=== PATIENT | female | born 1945 | race Caucasian/White ===

== ENCOUNTER 2020-02-21 09:12 | Outpatient (CLI) | payer MEDICARE, OTHER, SELFPAY ==
--- NOTE | 2020-02-21 09:30 | US_ITS ---
WS: [id number] ULTRASOUND RENAL TECHNIQUE: Ultrasound examination of both kidneys. CLINICAL INFORMATION: I10 - Essential (primary) hypertension COMPARISON: None. FINDINGS: RIGHT: Right kidney is normal in size and appearance. Echogenicity: Normal. Cortical thickness: 1.2 cm; Normal. Hydronephrosis: None. Perinephric fluid: None. Right kidney measures: 10.9 cm x 4.8 cm x 4.0 cm. LEFT: Left kidney is normal in size and appearance. Echogenicity: Normal. Cortical thickness: 1.2 cm; Normal. Hydronephrosis: None. Perinephric fluid: None. Left kidney measures: 10.3 cm x 4.2 cm x 4.6 cm. Normal visualized aorta. Normal bladder. US/US renal BI* [id number] IMPRESSION: Technically difficult examination due to body habitus. 1. Normal renal ultrasound. No hydronephrosis. 2. Normal bladder.
== END 2020-02-21 09:13 | disposition home or self-care (01) ==
PROVIDERS: PCP Nurse Practitioner Family; Visit Provider Nurse Practitioner Family
DX: I10 Essential (primary) hypertension (principal)
CPT/HCPCS: 76770

== ENCOUNTER 2020-02-28 06:38 | Outpatient (CLI) | payer MEDICARE, OTHER, SELFPAY ==
--- NOTE | 2020-02-28 07:15 | USCV_ITS ---
Anila Pearson Age: 74 Gender: F : 1945 Exam Date: 02/28/2020 07:02 Ordering Phys: Rocio GustafsonP Technologist: Lily Ahumada Exam Location: [facility] [place] Indication: htn Aortic Velocity @ SMA (cm/s) 81.6 RIGHT KIDNEY LEFT KIDNEY Velocity (cm/s) Velocity (cm/s) Sys/Diaz Sys/Diaz Resistive Index Resistive Index 117.9 / 29.2 0.75 Proximal Renal Artery 42.0 / 10.6 0.75 145.9 / 42.6 0.71 Mid Renal Artery 59.4 / 11.1 0.81 65.0 / 22.6 0.65 Distal Renal Artery 44.3 / 19.8 0.55 54.4 / 17.4 0.68 Hilar 39.0 / 11.4 0.71 66.5 / 20.2 0.70 Upper Pole 36.4 / 13.5 0.63 20.8 / 8.0 0.61 Mid Pole 18.5 / 8.7 0.53 25.1 / 13.6 0.46 Lower Pole 33.0 / 12.2 0.63 1.80 Renal Aortic Ratio 0.73 Accleration Index (cm/sec2) 989.00 Hilar 785.00 1150.0 Upper Pole 608.00 0 284.00 Mid Pole 282.00 302.00 Lower Pole 652.00 120.2 Kidney Length (mm) 107.1 FINDINGS There is no evidence of hemodynamically significant right renal artery stenosis. There is no evidence of hemodynamically significant left renal artery stenosis. CONCLUSIONS No sonographic evidence of hemodynamically significant renal artery stenosis bilaterally. Dr. Millicent Navarro DO (Electronically Signed) Final Date: 28 February 2020 09:36 S
== END 2020-02-28 06:39 | disposition home or self-care (01) ==
PROVIDERS: PCP Nurse Practitioner Family; Visit Provider Nurse Practitioner Family
DX: I10 Essential (primary) hypertension (principal)
CPT/HCPCS: 93975

== ENCOUNTER → 2020-03-05 00:01 | Outpatient (BNVA) | payer MEDICARE, OTHER, SELFPAY | PROVIDERS: PCP Nurse Practitioner Family; Visit Provider Nurse Practitioner Family | DX: R53.83 Other fatigue (principal); I10 Essential (primary) hypertension | CPT/HCPCS: 80053; 84443; 85007; 85027 ==

== ENCOUNTER 2020-04-10 07:46 | Outpatient (CLI) | payer MEDICARE, OTHER, SELFPAY ==
[2020-04-10 08:19] VITALS: BMI 32.8
--- NOTE | 2020-04-10 08:19 | NMCV_ITS ---
NM cecily perf SPECT r/s* [id number] Anila Pearson Age: 74 Gender: F : 1945 Exam Date: 04/10/2020 08:19 Ordering Phys: Jassi Hayes M.D ([email or web address]) Technologist: KASEY Jorge Exam Location: [facility] Indications: CHEST PAIN STRESS TEST Please see separate stress test report in [facility] for full findings IMAGE PROTOCOL Rest/Stress 1 Dobutamine Day Radiopharmaceutical Dose (mCi) Administration Site Administered by Rest: Tc-99m 10.7 IV KASEY Jorge Sestamibi Stress:Tc-99m 32.5 IV - right KASEY Jorge Sestamibi antecubital Rest: 10-Apr-2020 60 Discovery 630 Stress: 10-Apr-2020 30 Discovery 630 0.4mg Lexiscan. Images obtained in supine and prone position. SPECT RESULTS Technical Quality: Good Raw Data Analysis: Subdiaphragmatic activity Image Corrections: No attenuation or motion correction applied Summed Stress Score: 1 Summed Rest Score: 6 Summed Difference Score: 1 PERFUSION FINDINGS There is reduced uptake of radiotracer in the apical wall that improves with stress. Likely secondary to attenuation artifact. No evidence of ischemia seen FUNCTIONAL RESULTS (calculated via Gated SPECT) Stress Image LV EF (%): 80 Stress EDV (mL):82 TID: 1.07 Stress ESV (mL):16 FUNCTIONAL FINDINGS: LV systolic function is normal IMPRESSIONS 1. Normal myocardial perfusion imaging with no evidence of ischemia. 2. There is a small defect in the apical wall that improves with stress. Likely attenuation artifact 3. LV systolic function is normal Jassi Hayes MD (Electronically Signed) Final Date: 12 April 2020 15:14 S
--- NOTE | 2020-04-10 08:19 | ECG_ITS ---
[facility] Test Date: 2020-04-10 Pat Name: Anila Pearson Department: Room: Gender: Female [employer]orer [employer]: : 1945 Requested By: Jassi Hayes Order Number: [id number] Ran MD: Jassi Hayes M.D. Interpretive Statements NAME OF STUDY: LEXISCAN SESTAMIBI STRESS TEST INDICATION: [Chest Pain, ] Procedure: At the baseline, the blood pressure was 153/79 mmHg, with a heart rate of 65 bpm. The electrocardiogram showed normal sinus rhythm, normal with normal ST and T waves. The Lexiscan was infused over a duration of 20 seconds. A total of 0.4 mg of Lexiscan was infused. The stress phase was continued for a total of 5 minutes. Heart rate at the end of stress phase was 86 bpm with a blood pressure 137/68 mmHg. The EKG at the peak infusion revealed sinus rhythm with no significant ST-T wave changes. Sestamibi was injected 20 seconds after Lexiscan infusion. Blood pressure at the end of the recovery phase was 133/67mmHg with a heart rate of 79 bpm. Conclusion: 1. Normal EKG response to Lexiscan infusion. 2. No Lexiscan induced chest pain or cardiac arrhythmia. 3. Normal blood pressure and heart rate response. 4. Sestamibi/sestamibi perfusion scan pending; see separate report. Electronically Signed On 04-19-2020 17:58:38 CDT by Jassi Hayes M.D. [id number]
--- NOTE | 2020-04-10 09:30 | USCV_ITS ---
Anila Pearson Age: 74 Gender: F : 1945 Exam Date: 04/10/2020 08:48 Ordering Phys: Jassi Hayes M.D ([email or web address]) Technologist: Lily Ahumada [place] [facility] [place]: SOB BP: 139 / 63 HR: 56 Rhythm: Sinus Technical Quality: Adequate MEASUREMENTS (Male / Female) Normal Values 2D ECHO LV Diastolic Diameter PLAX 3.6 cm 4.2 - 5.9 / 3.9 - 5.3 cm LV Systolic Diameter PLAX 2.7 cm LV Chamber Size 2.9 cm IVS Diastolic Thickness 1.1 cm 0.6 - 1.0 / 0.6 - 0.9 cm IVS Systolic Thickness 1.4 cm LVPW Diastolic Thickness 1.9 cm 0.6 - 1.0 / 0.6 - 0.9 cm LVPW Systolic Thickness 1.9 cm RV Chamber Size 2.1 cm LVOT Diameter 2.1 cm LV Ejection Fraction 2D Teich 52.6 % LV Ejection Fraction MOD 2C 61.7 % LV Ejection Fraction 2C AL 60.1 % LA Diameter 3.1 cm LA Width 3.3 cm LA Height 4.1 cm RA Width 2.7 cm RA Height 3.5 cm Aorta at Sinotubular Diameter 2.9 cm M-MODE LV Diastolic Diameter MM 4.5 cm 4.2 - 5.9 / 3.9 - 5.3 cm LV Systolic Diameter MM 3.1 cm LV Ejection Fraction MM Teich 59.5 % IVS Diastolic Thickness MM 1.0 cm 0.6 - 1.0 / 0.6 - 0.9 cm IVS Systolic Thickness MM 1.0 cm LVPW Diastolic Thickness MM 0.9 cm 0.6 - 1.0 / 0.6 - 0.9 cm LVPW Systolic Thickness MM 1.1 cm Aortic Annulus Diameter 3.4 cm LA Ao Ratio MM 1.0 MV E Point Septal Separation 0.7 cm DOPPLER AV Peak Velocity 124.0 cm/s LVOT Peak Velocity 104.0 cm/s AV Area Cont Eq vti 2.9 cm squared AV Area Cont Eq pk 3.0 cm squared MV Area PHT 3.7 cm squared Mitral E to A Ratio 0.8 MV E' Velocity 47.5 cm/s Mitral E to MV E' Ratio 8.9 Mitral E to LV E' Lateral Ratio 7.6 Mitral E to LV E' Septal Ratio 10.9 TR Peak Velocity 204.5 cm/s TR Peak Gradient 16.7 mmHg TV Peak E Velocity 67.0 cm/s Right Atrial Pressure 3.0 mmHg Pulmonary Artery Systolic Pressu 19.7 mmHg PV Peak Velocity 82.0 cm/s RV Acceleration Time 0.2 s RV Ejection Time 0.4 s RV AcT/ET 0.4 FINDINGS Left Ventricle Normal left ventricular size. LV systolic function is normal with EF of 55-60%. No regional wall motion abnormalities. Grade 1 diastolic dysfunction Right Ventricle The right ventricle is normal in size and function. Right Atrium The right atrium is normal in size. Left Atrium The left atrium is normal in size. Mitral Valve Structurally normal mitral valve without significant stenosis or prolapse. There is trace mitral regurgitation. Aortic Valve Structurally normal aortic valve without significant sclerosis or stenosis. There is mild aortic regurgitation. Tricuspid Valve Structurally normal tricuspid valve without significant stenosis or regurgitation. Insufficient TR jet to calculate RVSP Pulmonic Valve Grossly normal Pericardium Normal pericardium without effusion. Aorta Normal ascending aorta dimension. CONCLUSIONS LV systolic function is normal with EF of 55-60% Grade 1 diastolic dysfunction is noted Mild aortic regurgitation. Trace mitral regurgitation is noted No comparison studies are available Jassi Hayes MD (Electronically Signed) Final Date: 13 April 2020 14:46 S
[2020-04-10] MEDS: regadenoson 0.4 Mg/5 ml Syringe IVP (11:31)
[2020-04-10 11:48] VITALS: BP 133/67; PULSE 78
== END 2020-04-10 07:47 | disposition home or self-care (01) ==
LOC: CDL 07:48
PROVIDERS: PCP Nurse Practitioner Family; Visit Provider Internal Medicine
DX: R07.9 Chest pain, unspecified (principal); R06.02 Shortness of breath; I08.0 Rheumatic disorders of both mitral and aortic valves
CPT/HCPCS: 78452; 93017; 93306; A9500; J2785

== ENCOUNTER 2021-05-13 10:40 | Outpatient (CLI) | payer MEDICARE, OTHER, SELFPAY ==
--- NOTE | 2021-05-13 10:58 | XR_ITS ---
WS: [email or web address] XR shoulder RT min 2V* [id number] REASON FOR EXAM: M25.511 - Pain in right shoulder FINDINGS: No fracture. Mild to moderate narrowing of the acromioclavicular joint with mild subchondral sclerosis and small m arginal osteophytes. Mild narrowing of the glenohumeral joint with mild subchondral sclerosis of the glenoid and small mar ginal osteophyte of the humeral head. Subchondral sclerosis and cystic change with some irregularity at the humeral insertion of the rotato r cuff tendon. XR/XR shoulder RT min 2V* [id number] IMPRESSION: No acute abnormality. 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 Moderate osteoarthritis in the glenohumeral joint. Moderate rotator cuff arthro flynn.
--- NOTE | 2021-05-13 10:58 | XR_ITS ---
WS: [email or web address] XR cervical spine 3V* [id number] REASON FOR EXAM: S13.4XXA - Sprain of ligaments of cervical spine, initial... FINDINGS: No fracture identified. Normal odontoid. Straightening of the normal lordosis of the cervical spine on the lateral. Significant narrowing of the C5-C6 and C6-C7 disc spaces. 1 to 2 mm of anterolisthesis of C4 on C5. Calcified plaque in the right carotid bifurcation. XR/XR cervical spine 3V* [id number] IMPRESSION: No acute abnormality. Degenerative spondylosis as above. Calcified plaque in the right carotid artery bifurcation.
--- NOTE | 2021-05-13 10:58 | XR_ITS ---
WS: [email or web address] XR lumbar spine 2-3V* [id number] REASON FOR EXAM: M54.50 - Low back pain, unspecified FINDINGS: Rotatory scoliosis convex right on the AP view. Straightening of the upper lumbar spine lordosis on the lateral. Mild biconcave compression deformities of T12 and L1. Chronicity unknown. Significant narrowing of the L1-L2 and L2-L3 disc spaces. Remaining disc spaces are relatively well-p reserved. No spondylolysis. 3 mm of anterolisthesis of L3 in relation to L2. 3 mm of anterolisthesis of L5 in relation to L4. Degenerative arthropathy in the sacroiliac joints bilaterally. XR/XR lumbar spine 2-3V* [id number] IMPRESSION: Multilevel degenerative spondylosis as above. Mild compression deformities of T12 and L1, unknown chronicity.
== END 2021-05-13 10:41 | disposition home or self-care (01) ==
LOC: RAD 10:43
PROVIDERS: PCP Nurse Practitioner Family; Visit Provider Nurse Practitioner Family
DX: S13.4XXA Sprain of ligaments of cervical spine, initial encounter (principal); M19.011 Primary osteoarthritis, right shoulder; M47.816 Spondylosis without myelopathy or radiculopathy, lumbar region; I65.21 Occlusion and stenosis of right carotid artery; X58.XXXA Exposure to other specified factors, initial encounter
CPT/HCPCS: 72040; 72100; 73030

== ENCOUNTER 2021-06-16 08:53 | Outpatient (CLI) | payer MEDICARE, OTHER, SELFPAY ==
--- NOTE | 2021-06-16 09:15 | USCV_ITS ---
Anila Pearson Age: 75 Gender: F : 1945 Exam Date: 06/16/2021 09:08 Ordering Phys: Rocio Gustafson Technologist: [place] [facility] [place]: DIZZY Risk Factors: Previous Vascular Surgery: Right Brachial BP: / Left Brachial BP: / Right Left Velocity (cm/s) Spectral Plaque Velocity (cm/s) Spectral Plaque Syst/Diast Broadening Syst/Diast Broadening 52.80/ 10.10 Prox CCA 55.20 / 9.30 39.50/ 10.70 Mid CCA 55.90 / 14.00 56.10/ 11.70 Distal CCA 60.60 / 14.00 74.60/ 15.50 Prox ICA 57.50 / 14.00 71.50/ 18.60 Mid ICA 65.30 / 14.80 72.20/ 15.50 Distal ICA 65.30 / 18.60 58.70 ECA 94.80 1.33 ICA/CCA 1.08 Antegrade Vertebral Antegrade 38.80/ 13.20 cm/s 67.60/ 14.00 cm/s Tri Subclavian Tri 92.40 87.80 FINDINGS Comparison: none available. No significant elevation of systolic or diastolic velocities. Waveforms are normal. Mild bilateral carotid atherosclerosis. CONCLUSIONS No carotid stenosis. Mild carotid atherosclerosis. Dr. Millicent Navarro DO (Electronically Signed) Final Date: 16 Jun 2021 11:14 S
== END 2021-06-16 08:54 | disposition home or self-care (01) ==
PROVIDERS: PCP Nurse Practitioner Family; Visit Provider Nurse Practitioner Family
DX: R42 Dizziness and giddiness (principal)
CPT/HCPCS: 93880

== ENCOUNTER 2021-07-08 14:05 | Outpatient (CLI) | payer MEDICARE, OTHER, SELFPAY ==
--- NOTE | 2021-07-08 14:30 | MR_ITS ---
WS: [email or web address] MRI LUMBAR SPINE NONCONTRAST TECHNIQUE: Sagittal T1, T2 and STIR imaging. Axial T1 and T2 imaging. CLINICAL INFORMATION: S32.000A - Wedge compression fracture of unspecified lumb... COMPARISON: None. FINDINGS: Mild lumbar curve. No acute compression. No high-grade central canal stenosis. Degenerative endplate- type changes at T12-L1 with disc desiccation and endplate edema. Lumbar curve. L1-L2: Normal. L2-L3: Mild disc bulging with slight effacement of ventral thecal sac. Mild facet arthropathy. Narrow ing of the LEFT subarticular recess. Spinal canal and foramen are patent. L3-L4: Mild annular bulging with slight narrowing of the subarticular recess. Mild facet arthropathy with ligamentum flavum hypertrophy. Mild RIGHT greater than LEFT foraminal narrowing with contact of the exiting RIGHT greater than LEFT L3 nerve roots. L4-L5: Disc desiccation with mild disc bulging. RIGHT eccentric disc bulging with slight contact of t he exiting RIGHT L4 nerve root. Mild RIGHT foraminal narrowing. LEFT foramen is patent. Mild facet ar thropathy. L5-S1: Minimal anterolisthesis L5 on S1. Minimal disc bulging. Moderate facet arthropathy with ligame ntum flavum hypertrophy. Spinal canal and foramen are patent. MR/MR lumbar spine wo con* [id number] IMPRESSION: 1. Mild lumbar curve. No acute compression. No high-grade central canal stenos is. 2. Degenerative endplate-type changes at T12-L1. 3. Narrowing of the LEFT subarticular recess L2-L3. 4. Mild RIGHT greater than LEFT L3-L4 foraminal narrowing with small bilateral foraminal protrusions. 5. Mild RIGHT L4-L5 foraminal narrowing with encroachment exiting RIGHT L4 ner ve root. 6. Moderate to advanced facet arthropathy L5-S1.
== END 2021-07-08 14:06 | disposition home or self-care (01) ==
LOC: RAD 14:06
PROVIDERS: PCP Nurse Practitioner Family; Visit Provider Nurse Practitioner Family
DX: S32.000A Wedge compression fracture of unspecified lumbar vertebra, initial encounter for closed fracture (principal); M47.817 Spondylosis without myelopathy or radiculopathy, lumbosacral region
CPT/HCPCS: 72148

== ENCOUNTER → 2022-04-14 12:53 | Outpatient (BNVA) | payer MEDICARE, OTHER, SELFPAY | PROVIDERS: PCP Nurse Practitioner Family; Visit Provider Nurse Practitioner Family | DX: I10 Essential (primary) hypertension (principal) | CPT/HCPCS: 99213 ==

== ENCOUNTER 2022-07-06 09:44 | Outpatient (CLI) | payer MEDICARE, OTHER, SELFPAY ==
--- NOTE | 2022-07-06 09:49 | MM_ITS ---
WS: [email or web address] BILATERAL SCREENING DIGITAL TOMOSYNTHESIS MAMMOGRAM WITH CAD HISTORY: Z12.39 - Encounter for other screening for malignant neoplasm... COMPARISON: 07/28/2021, 01/15/2020 Bilateral CC and MLO views with tomosynthesis and synthetic mammography submitted. Computer aided det ection analyzed. Breast composition: There are scattered areas of fibroglandular density. No suspicious masses, microc alcifications or architectural distortion. Long-term stability of an asymmetry in the lateral RIGHT b reast at a middle depth. No suspicious masses or calcifications or interval change. MM/[place] [id number] IMPRESSION: BI-RADS: 2-Benign FOLLOW UP: 1 Year Follow-up
== END 2022-07-06 09:45 | disposition home or self-care (01) ==
PROVIDERS: PCP Nurse Practitioner Family; Visit Provider Nurse Practitioner Family
DX: Z12.31 Encounter for screening mammogram for malignant neoplasm of breast (principal)
CPT/HCPCS: 77063; 77067

== ENCOUNTER → 2022-11-24 10:25 | Outpatient (BNVA) | payer MEDICARE, OTHER, SELFPAY | PROVIDERS: PCP Nurse Practitioner Family; Visit Provider Dermatology | DX: L57.0 Actinic keratosis (principal); L81.4 Other melanin hyperpigmentation; L82.1 Other seborrheic keratosis; L57.8 Other skin changes due to chronic exposure to nonionizing radiation; L30.9 Dermatitis, unspecified | CPT/HCPCS: 11104; 11105; 17000; 99203 ==

== ENCOUNTER → 2022-12-21 14:40 | Outpatient (BNVA) | payer MEDICARE, OTHER, SELFPAY | PROVIDERS: PCP Nurse Practitioner Family; Visit Provider Nurse Practitioner Family | DX: I10 Essential (primary) hypertension (principal); R53.83 Other fatigue; Z00.00 Encounter for general adult medical examination without abnormal findings | CPT/HCPCS: 80053; 80061; 85025 ==

== ENCOUNTER → 2023-01-03 11:59 | Outpatient (BNVA) | payer MEDICARE, OTHER, SELFPAY | PROVIDERS: PCP Nurse Practitioner Family; Visit Provider Nurse Practitioner Family | DX: D64.9 Anemia, unspecified (principal); I10 Essential (primary) hypertension | CPT/HCPCS: 80061; 82607; 83550 ==

== ENCOUNTER → 2023-01-12 14:32 | Outpatient (BNVA) | payer MEDICARE, OTHER, SELFPAY | PROVIDERS: PCP Nurse Practitioner Family; Visit Provider Internal Medicine | DX: I10 Essential (primary) hypertension (principal); F41.9 Anxiety disorder, unspecified | CPT/HCPCS: 99213 ==

== ENCOUNTER → 2023-03-21 13:46 | Outpatient (BNVA) | payer MEDICARE, OTHER, SELFPAY | PROVIDERS: PCP Nurse Practitioner Family; Visit Provider Dermatology | DX: L30.0 Nummular dermatitis (principal); L82.0 Inflamed seborrheic keratosis; L73.8 Other specified follicular disorders | CPT/HCPCS: 17110; 99213 ==

== ENCOUNTER → 2023-04-03 15:52 | Outpatient (BNVA) | payer MEDICARE, OTHER, SELFPAY | PROVIDERS: PCP Nurse Practitioner Family; Visit Provider Nurse Practitioner Family | DX: J32.9 Chronic sinusitis, unspecified (principal) | CPT/HCPCS: 87400; 87426 ==

== ENCOUNTER 2023-04-12 11:38 | Outpatient (CLI) | payer MEDICARE, OTHER, SELFPAY ==
--- NOTE | 2023-04-12 11:41 | XRR_ITS ---
PROCEDURE INFORMATION: Exam: XR Chest Exam date and time: 04/12/2023 11:53 AM Age: 77 years old Clinical indication: Cough; Additional info: R05.9 - cough, unspecified TECHNIQUE: Imaging protocol: Radiologic exam of the chest. Views: 2 views. Total images: 2 COMPARISON: CR XR cervical spine 3V* [id number] 05/13/2021 11:19 AM FINDINGS: Lungs: Trace atelectasis or scar noted in the right mid lung. Benign granulomatous disease of the lung is noted. Pleural spaces: Unremarkable. No pleural effusion. No pneumothorax. Heart/Mediastinum: Unremarkable. No cardiomegaly. Bones/joints: Unremarkable. XR/XR chest 2V* [id number] IMPRESSION: Trace atelectasis or scar noted in the right mid lung.
== END 2023-04-12 11:39 | disposition home or self-care (01) ==
LOC: RAD 11:39
PROVIDERS: PCP Nurse Practitioner Family; Visit Provider Nurse Practitioner Family
DX: R05.9 Cough, unspecified (principal)
CPT/HCPCS: 71046

== ENCOUNTER 2023-07-10 10:24 | Outpatient (CLI) | payer MEDICARE, OTHER, SELFPAY ==
--- NOTE | 2023-07-10 10:31 | MM_ITS ---
WS: [email or web address] SCREENING DIGITAL TOMOSYNTHESIS MAMMOGRAM WITH CAD HISTORY: SCREENING COMPARISON: 07/06/2022, 07/28/2021 Bilateral CC and MLO with tomosynthesis views submitted. Synthetic mammography reviewed. Computer aid ed detection analyzed. Breast composition: There are scattered areas of fibroglandular density. No suspicious masses, microc alcifications or architectural distortion. Benign lymph node upper outer quadrant RIGHT breast. MM/[place] [id number] IMPRESSION: BI-RADS: 2-Benign FOLLOW UP: 1 Year Follow-up
== END 2023-07-10 10:25 | disposition home or self-care (01) ==
LOC: RAD 10:24
PROVIDERS: PCP Nurse Practitioner Family; Visit Provider Nurse Practitioner Family
DX: Z12.31 Encounter for screening mammogram for malignant neoplasm of breast (principal); R92.323 Mammographic fibroglandular density, bilateral breasts
CPT/HCPCS: 77063; 77067

== ENCOUNTER → 2024-01-15 14:44 | Outpatient (BNVA) | payer MEDICARE, OTHER, SELFPAY | PROVIDERS: PCP Nurse Practitioner Family; Visit Provider Internal Medicine | DX: I10 Essential (primary) hypertension (principal) | CPT/HCPCS: 99214 ==

== ENCOUNTER → 2024-04-25 15:46 | Outpatient (BNVA) | payer MEDICARE, OTHER, SELFPAY | PROVIDERS: PCP Nurse Practitioner Family; Visit Provider Nurse Practitioner Family | DX: I10 Essential (primary) hypertension (principal); D64.9 Anemia, unspecified | CPT/HCPCS: 80053; 85025 ==

== ENCOUNTER → 2024-06-20 09:02 | Outpatient (BNVA) | payer MEDICARE, OTHER, SELFPAY | PROVIDERS: PCP Nurse Practitioner Family; Visit Provider Nurse Practitioner Family | DX: E87.1 Hypo-osmolality and hyponatremia (principal) | CPT/HCPCS: 80053 ==

== ENCOUNTER 2024-07-05 13:06 | Outpatient (CLI) | payer MEDICARE, OTHER, SELFPAY ==
--- NOTE | 2024-07-05 13:12 | XR_ITS ---
WS: [email or web address] Right shoulder, 2 views, 07/05/2024 Clinical Data: M25.511 - Pain in right shoulder Comparison: Right shoulder, 05/13/2021 Findings: No fractures or dislocations are seen. The AC joint shows mild osteoarthritis. There is minimal osteoarthritis of the right glenohumeral joint with irregularity of the greater tuberosity. The adjacent right clavicle, right scapula and ribs are normal. The soft tissues are unremarkable. XR/XR shoulder RT min 2V* [id number] Impression: Minimal osteoarthritis of the right AC joint and glenohumeral joint.
--- NOTE | 2024-07-05 13:12 | XR_ITS ---
WS: [email or web address] Cervical spine, 3 views, 07/05/2024 Clinical Data: M54.2 - Cervicalgia Comparison: Cervical spine, 05/13/2021 Findings: No compression fractures are seen. There is degenerative disc narrowing at C5-C6 and C6-C7. There is no prevertebral soft tissue swelling. The odontoid is unremarkable. The soft tissues of the neck show right carotid bifurcation calcification. The lung apices are normal. XR/XR cervical spine 3V* [id number] Impression: Degenerative disc narrowing at C5-C6 and C6-C7.
== END 2024-07-05 13:07 | disposition home or self-care (01) ==
LOC: RAD 13:07
PROVIDERS: PCP Nurse Practitioner Family; Visit Provider Nurse Practitioner Family
DX: M50.322 Other cervical disc degeneration at C5-C6 level (principal); M50.323 Other cervical disc degeneration at C6-C7 level; I65.21 Occlusion and stenosis of right carotid artery; M19.011 Primary osteoarthritis, right shoulder
CPT/HCPCS: 72040; 73030

== ENCOUNTER 2024-07-12 13:37 | Outpatient (CLI) | payer MEDICARE, OTHER, SELFPAY ==
--- NOTE | 2024-07-12 13:47 | MM_ITS ---
WS: [email or web address] BILATERAL 3D TOMOSYNTHESIS DIGITAL SCREENING MAMMOGRAM WITH CAD CLINICAL INFORMATION: SCREENING HISTORY: Screening mammogram. No current complaints. COMPARISON: 2023 TECHNIQUE: Bilateral CC and MLO views. FINDINGS: Fatty-replaced breasts bilaterally. No suspicious focal mass, asymmetry, calcifications, or architectural distortion. No evidence of malignancy. Vascular calcifications. A few incidental intramammary lymph nodes similar to previous MM/MM scr tomosynthesis [id number] IMPRESSION: DENSITY: There are scattered areas of fibroglandular density. BI-RADS: 2 - Benign. FOLLOW UP: 1 Year Follow-up Recommend return to annual screening mammography.
== END 2024-07-12 13:38 | disposition home or self-care (01) ==
LOC: RAD 13:39
PROVIDERS: PCP Nurse Practitioner Family; Visit Provider Nurse Practitioner Family
DX: Z12.31 Encounter for screening mammogram for malignant neoplasm of breast (principal); R92.313 Mammographic fatty tissue density, bilateral breasts; R92.1 Mammographic calcification found on diagnostic imaging of breast; R59.0 Localized enlarged lymph nodes
CPT/HCPCS: 77063; 77067

== ENCOUNTER → 2024-07-16 11:21 | Outpatient (BNVA) | payer MEDICARE, OTHER, SELFPAY | PROVIDERS: PCP Nurse Practitioner Family; Visit Provider Nurse Practitioner Family | DX: I10 Essential (primary) hypertension (principal) | CPT/HCPCS: 80053; 80061 ==

== ENCOUNTER 2024-07-22 14:36 | Outpatient (CLI) | payer MEDICARE, OTHER, SELFPAY ==
--- NOTE | 2024-07-22 15:00 | USCV_ITS ---
Anila Pearson Age: 79 Gender: F : 1945 Exam Date: 07/22/2024 14:57 Ordering Phys: Rocio Gustafson Technologist: [email or web address] Exam Location: [facility] Indication: vertigo Risk Factors: Previous Vascular Surgery: Right Brachial BP: / Left Brachial BP: / Right Left Velocity (cm/s) Spectral Plaque Velocity (cm/s) Spectral Plaque Syst/Diast Broadening Syst/Diast Broadening 77.60/ 11.50 Prox CCA 63.70 / 12.30 75.00/ 12.80 Mid CCA 55.80 / 8.20 56.10/ 8.70 Distal CCA 56.40 / 9.30 38.20/ 0.00 Prox ICA 44.20 / 9.10 48.80/ 10.70 Mid ICA 51.40 / 9.50 40.70/ 9.40 Distal ICA 53.10 / 14.70 73.10 ECA 44.70 0.70 ICA/CCA 0.80 Antegrade Vertebral Antegrade 32.20/ 2.60 cm/s 23.70/ 4.10 cm/s Tri Subclavian Tri 88.50 79.10 CONCLUSIONS Right ICA stenosis <50%. Mild atheromatous plaque right carotid bulb/ICA. Left ICA stenosis <50%. Mild atheromatous plaque left carotid bulb/ICA. Normal antegrade Doppler flow noted in the right vertebral artery. Normal antegrade Doppler flow noted in the left vertebral artery. Zackery Kuo MD (Electronically Signed) Final Date: 22 July 2024 15:43 S
== END 2024-07-22 14:37 | disposition home or self-care (01) ==
LOC: RAD 14:37
PROVIDERS: PCP Nurse Practitioner Family; Visit Provider Nurse Practitioner Family
DX: I67.2 Cerebral atherosclerosis (principal); R42 Dizziness and giddiness
CPT/HCPCS: 93880

== ENCOUNTER → 2024-07-31 10:01 | Outpatient (BNVA) | payer MEDICARE, OTHER, SELFPAY | PROVIDERS: PCP Nurse Practitioner Family; Visit Provider Nurse Practitioner Family | DX: E87.1 Hypo-osmolality and hyponatremia (principal) | CPT/HCPCS: 80053 ==

== ENCOUNTER → 2024-09-04 10:27 | Outpatient (BNVA) | payer MEDICARE, OTHER, SELFPAY | PROVIDERS: PCP Nurse Practitioner Family; Visit Provider Nurse Practitioner Family | DX: E87.1 Hypo-osmolality and hyponatremia (principal) | CPT/HCPCS: 80053 ==

== ENCOUNTER → 2024-11-06 08:25 | Outpatient (BNVA) | payer MEDICARE, OTHER, SELFPAY | PROVIDERS: PCP Nurse Practitioner Family; Visit Provider Nurse Practitioner Family | DX: E87.1 Hypo-osmolality and hyponatremia (principal) | CPT/HCPCS: 80053 ==

== ENCOUNTER → 2024-12-23 11:05 | Outpatient (BNVA) | payer MEDICARE, OTHER, SELFPAY | PROVIDERS: PCP Nurse Practitioner Family; Visit Provider Dermatology | DX: L73.8 Other specified follicular disorders (principal); D22.39 Melanocytic nevi of other parts of face; L82.0 Inflamed seborrheic keratosis; L29.89 Other pruritus; L53.8 Other specified erythematous conditions; D48.5 Neoplasm of uncertain behavior of skin; L57.0 Actinic keratosis | CPT/HCPCS: 11102; 17000; 17110; 99213 ==

== ENCOUNTER → 2025-01-07 10:28 | Outpatient (BNVA) | payer MEDICARE, OTHER, SELFPAY | PROVIDERS: PCP Nurse Practitioner Family; Visit Provider Nurse Practitioner Family | DX: E87.6 Hypokalemia (principal) | CPT/HCPCS: 80053 ==

== ENCOUNTER 2025-01-13 14:39 | Outpatient (CLI) | payer MEDICARE, OTHER, SELFPAY ==
--- NOTE | 2025-01-13 14:43 | XR_ITS ---
WS: [email or web address] XR shoulder RT min 2V* [id number] REASON FOR EXAM: M25.511 - Pain in right shoulder FINDINGS: No fracture or focal bone lesion. Significant narrowing of the acromioclavicular joint space with moderate subchondral sclerosis and osteophytosis. The glenohumeral joint space is not demonstrated. There may be narrowing of unknown severity. Minimal sclerosis and cystic change in the greater tuberosity. XR/XR shoulder RT min 2V* [id number] IMPRESSION: Moderate osteoarthritis in the acromioclavicular joint. Osteoarthritis of unknown severity in the glenohumeral joint. Minimal rotator cuff arthropathy.
== END 2025-01-13 14:40 | disposition home or self-care (01) ==
LOC: RAD 14:41
PROVIDERS: PCP Nurse Practitioner Family; Visit Provider Nurse Practitioner Family
DX: I10 Essential (primary) hypertension (principal); M19.011 Primary osteoarthritis, right shoulder
CPT/HCPCS: 73030; 99213